=== PATIENT | female | born 1960 | race Caucasian/White ===

== ENCOUNTER 2024-11-30 05:50 | Day surgery (SDC) | payer OTHER ==
[2024-11-22 12:39] VITALS: BMI 26.6
[~2024-11-30 05:50] MED LIST: EPINEPHrine 0.3 MG in Ophthalmic Irrigation Solution 500 ML IRR SCH
[2024-11-30] MEDS ORDERED: Cyclopentolate 1% Opth Drop 2 ML BOT ONE (06:08)
[2024-11-30] MEDS ORDERED: PHENYLephrine 2.5% Ophth Soln 15 ml Bottle ONE (06:08)
[2024-11-30] MEDS ORDERED: PROPOFOL 20 ML ONE (06:32)
[2024-11-30] MEDS ORDERED: fentaNYL 50 mcg/mL 1 mL Vial ONE (06:33)
[2024-11-30] MEDS ORDERED: Midazolam HCl 2 mg/2 ml Vial ONE (06:33)
[2024-11-30] MEDS ORDERED: Lidocaine 1% PF 5 ML VIAL ONE (07:16)
[2024-11-30] MEDS ORDERED: Triamcinolone 40 MG/ML VIAL ONE (07:16)
[2024-11-30] MEDS ORDERED: Bupivacaine 0.75% 10 ML VIAL ONE (07:16)
[2024-11-30] MEDS ORDERED: Lidocaine 4% PF 5 ML AMP ONE (07:16)
[2024-11-30] MEDS ORDERED: TISSUEBLUE 0.5 ML SYRINGE IO ONE (07:16)
[2024-11-30] MEDS ORDERED: CEFAZOLIN 1 GM VIAL ONE (07:16)
[2024-11-30] MEDS ORDERED: Maxitrol 0.1% Opth Oint 3.5 GM TUBE ONE (07:16)
== END 2024-11-30 08:15 | disposition home or self-care (01) ==
LOC: SDC 05:50
PROVIDERS: ATTEND Ophthalmology Retina Specialist
PROC: 08T53ZZ Resection of Left Vitreous, Percutaneous Approach (ICD-10-PCS; principal; 2024-11-30)
DX: H35.372 Puckering of macula, left eye (principal)
CPT/HCPCS: J0171; J0690; J2250; J2704; J3010; J3301; J3490

== ENCOUNTER 2025-05-09 09:09 | Outpatient (CLI) | payer OTHER | END 2025-05-09 09:10 | disposition home or self-care (01) | LOC: SCSRAD 09:09 | PROVIDERS: ATTEND Student in an Organized Health Care Education/Training Program | DX: M25.551 Pain in right hip (principal); Z12.4 Encounter for screening for malignant neoplasm of cervix; Z00.00 Encounter for general adult medical examination without abnormal findings; Z83.49 Family history of other endocrine, nutritional and metabolic diseases; Z83.3 Family history of diabetes mellitus | CPT/HCPCS: 36415; 80053; 80061; 81001; 83036; 84443; 85025; 87624; 88175 ==